=== PATIENT | female | born 1960 ===

== ENCOUNTER 2023-06-13 19:51 | Emergency (ER) | payer OTHER, MEDICARE ==
[~2023-06-13] VITALS: Ht 152.4 cm; Wt 75.5 kg
[2023-06-13 21:00] VITALS: BP 173/83; PULSE 78
[2023-06-13 21:41] LABS: Urine Bacteria NONE SEEN /hpf (None Seen); Urine Blood Negative /uL (Negative); Urine Clarity Clear (Clear); Urine Color Colorless (Yellow); Urine Protein, UAD Negative (Negative); Urine Specific Gravity 1.009 (1.001-1.035); Urine Urobilinogen Normal (Negative); Urine WBC 5 /hpf (0 - 5); Urine pH 5.5 (5.0-8.0)
[2023-06-13 22:03] LABS: COVID19 ANTIGEN SOFIA FIA NEGATIVE (NEGATIVE)
[2023-06-13 22:04] LABS: Rapid Influenza A Negative (Negative); Rapid Influenza B Negative (Negative)
[2023-06-13] MEDS ORDERED: PROM1SOL4 PO (23:06)
[2023-06-13] MEDS ORDERED: AZITTAB PO (23:06)
[2023-06-13] MEDS ORDERED: ALBU108A5 IN (23:06)
[2023-06-13] MEDS ORDERED: CEPH500T PO (23:06)
[2023-06-13 23:12] VITALS: RESP 16; O2SAT 96
[2023-06-13] MEDS ORDERED: ALBUTEROL SULF 2.5 MG/0.5ML(0.5%) NEB SOLN NEB ONE (23:15)
[2023-06-13] MEDS ORDERED: cloNIDine HCL 0.1 MG TAB PO ONE (23:15)
[2023-06-13] MEDS ORDERED: ACETAMINOPHEN 500 MG TAB PO ONE (23:15)
[2023-06-13] MEDS ORDERED: guaiFENesin-DM 100/10mg/5ml SYR PO ONE (23:15)
[2023-06-13] MEDS ORDERED: IPRATROPIUM BROM 0.5 MG/2.5ML INH SOL NEB ONE (23:15)
== END 2023-06-13 23:07 | disposition home or self-care (01) ==
LOC: ER 19:53
DX: J40 Bronchitis, not specified as acute or chronic (principal); N39.0 Urinary tract infection, site not specified; R07.89 Other chest pain; Z20.822 Contact with and (suspected) exposure to COVID-19
CPT/HCPCS: 36415; 71045; 81001; 87426; 87804; 94640; 99284; J7644